=== PATIENT | female | born 2000 | race Caucasian/White ===

== ENCOUNTER 2023-01-16 12:27 | Emergency (ER) | payer MEDICAID ==
[~2023-01-16] VITALS: Ht 167.6 cm; Wt 63.0 kg
[2023-01-16 12:34] VITALS: O2SAT 100
[2023-01-16] MEDS ORDERED: SULF1TAB48 MT (15:27)
[2023-01-16] MEDS ORDERED: CEPH500T MT (15:27)
[2023-01-16 17:04] VITALS: BP 115/78; PULSE 79; RESP 20; TEMP 98.7
== END 2023-01-16 17:06 | disposition home or self-care (01) ==
LOC: ER 12:36
DX: S60.561A Insect bite (nonvenomous) of right hand, initial encounter (principal); W57.XXXA Bitten or stung by nonvenomous insect and other nonvenomous arthropods, initial encounter; Y93.89 Activity, other specified; Y92.89 Other specified places as the place of occurrence of the external cause; Y99.8 Other external cause status
CPT/HCPCS: 99283

== ENCOUNTER 2023-02-02 19:19 | Emergency (ER) | payer MEDICAID ==
[~2023-02-02] VITALS: Ht 167.6 cm; Wt 70.1 kg
[~2023-02-02 19:19] MED LIST: CEPH500T MT; SULF1TAB48 MT
[2023-02-02 19:23] VITALS: BP 108/67; O2SAT 98
[2023-02-02] MEDS ORDERED: MUPI1OIN4 TP (20:14)
[2023-02-02] MEDS ORDERED: CLIN-194 MT (20:14)
[2023-02-02 20:44] VITALS: PULSE 83; RESP 16; TEMP 98.6
== END 2023-02-02 20:47 | disposition home or self-care (01) ==
LOC: ER 19:19
DX: L01.00 Impetigo, unspecified (principal)
CPT/HCPCS: 81025; 99283

== ENCOUNTER 2023-08-18 08:12 | Emergency (ER) | payer MEDICAID ==
[~2023-08-18] VITALS: Ht 167.6 cm; Wt 73.0 kg
[~2023-08-18 08:12] MED LIST changes: +CLIN-194 MT; +MUPI1OIN4 TP
[2023-08-18 08:16] VITALS: O2SAT 98
[2023-08-18] MEDS ORDERED: MUPI1OIN4 TP (09:05)
[2023-08-18 09:58] VITALS: BP 111/70; PULSE 72; RESP 18; TEMP 98.6
== END 2023-08-18 10:01 | disposition home or self-care (01) ==
LOC: ER 08:12
DX: R21 Rash and other nonspecific skin eruption (principal); Z79.899 Other long term (current) drug therapy
CPT/HCPCS: 99283